=== PATIENT | male | born 1965 | race African-American/Black ===

== ENCOUNTER → 2019-09-29 | Day surgery (SDC) | payer OTHER ==
[2019-09-26 09:06] LABS: BASOPHILS % 0.3 % (0.0-1.0); EOSINOPHILS # (AUTO) 0.3 (0.0-0.4); EOSINOPHILS % 2.4 % (0.0-6.0); HEMATOCRIT 39.6 % (38.2-49.6); HEMOGLOBIN 12.9 g/dL (14.0-18.0); LYMPHOCYTES % 41.1 % (18.0-39.1); MEAN CORPUSCULAR HEMOGLOBIN 29.1 pg (28-32); MEAN CORPUSCULAR HGB CONC 32.6 g/dL (31-35); MEAN CORPUSCULAR VOLUME 89.2 fL (81-99); MONOCYTES # (AUTO) 0.7 (0.2-0.8); NEUTROPHILS % 49.8 % (38.7-80.0); PLATELET COUNT 323 x10e3/uL (140-360); RED BLOOD COUNT 4.44 x10e6/uL (4.3-5.7); RED CELL DISTRIBUTION WIDTH 13.8 % (11.7-14.4)
--- NOTE | 2019-09-26 09:17 | Diagnostic Imaging Report ---
EXAMINATION: CHEST 2 VIEWS INDICATION: ^[id number] ^[id number] ^PRE OP COMPARISON: None FINDINGS: PA and lateral views TUBES and LINES: None. LUNGS: Lungs are well inflated. Lungs are clear. There is no evidence of pneumonia or pulmonary edema. PLEURA: No pleural effusion or pneumothorax. HEART AND MEDIASTINUM: The cardiomediastinal silhouette is unremarkable. BONES AND SOFT TISSUES: No acute osseous lesion. Soft tissues are unremarkable. UPPER ABDOMEN: No free air under the diaphragm. IMPRESSION: No acute thoracic radiographic abnormality. Signed by: Lei Gallardo MD on 09/26/2019 9:14 AM
[2019-09-26 09:29] LABS: ANION GAP 11.7 mmol/L (8-16); BLOOD UREA NITROGEN 14 mg/dL (7-26); BUN/CREATININE RATIO 18 (6-25); CALCIUM 8.9 mg/dL (8.4-10.2); CARBON DIOXIDE 27 mmol/L (22-29); CHLORIDE 104 mmol/L (98-107); EST GLOMERULAR FILTRATION RATE > 60 ML/MIN (60-); GLUCOSE 93 mg/dL (74-118); POTASSIUM 3.7 mmol/L (3.5-5.1); SODIUM 139 mmol/L (136-145)
[~2019-09-29] MED LIST: ACETAMINOPHEN 1000 MG/100 ML 100 ML IV ONE; AMLODIPINE BESY10 MG PO; BENICAR20 MG PO; BUPIVACAINE HCL 0.5% INJ 30 ML VIAL INJ ONE; CEFTRIAXONE SOD 1 GM/NS 50 ML 50 ML IV ONE; DEXAMETHASONE SOD PHOS INJ 4 MG/ML VIAL ONE; FENTANYL CITRATE/PF 100MCG/2 ML INJ ONE; FINASTERIDE5 MG PO; FLOMAX0.4 MG PO; LIDOCAINE HCL 2% LOCAL INJ 5 ML SDV VIAL INJ ONE; METOCLOPRAMIDE HCL 10 MG/2ML VIAL ONE; METOPROLOL SUCC50 MG PO; MIDAZOLAM HCL 2 MG/2 ML VIAL ONE; ONDANSETRON HCL INJ 2MG/ML 2ML 2 MG/ML VIAL ONE; PROPOFOL IV EMULSION 10 MG/ML 20 ML VIAL ONE; SEVOFLURANE INHAL SOLN 250 ML PEN BTL ONE
[2019-09-29 09:05] VITALS: BP 148/99
--- NOTE | 2019-10-06 08:56 | Operative Report ---
DATE OF PROCEDURE: 09/29/2019 SURGEON: Deuce Barbosa MD PREOPERATIVE DIAGNOSIS: Enlarging right hydrocele. POSTOPERATIVE DIAGNOSIS: Enlarging right hydrocele. OPERATIVE PROCEDURE PERFORMED: Hydrocelectomy. ANESTHESIA: General anesthesia. ESTIMATED BLOOD LOSS: Minimal. INDICATIONS: Mr. Ethan Garcia is a 53-year-old black male with a history of enlarging right hydrocele. He now presents for definitive surgical management of this problem. PROCEDURE IN DETAIL: The patient brought into the operative room, placed in supine position. After administration of general anesthesia, was prepped and draped in usual sterile fashion. A horizontal incision was made over the right hemiscrotum and dissection was carried out through the layers of the scrotum. The tunica vaginalis was entered sharply and approximately 1200 mL of straw-colored fluid was obtained. The appendix testis was removed using electrocautery device. The cut edges of the tunica vaginalis were then fulgurated using the electrocautery device and oversewn with a running chromic suture. This was put in the edges from sealing back together again. A quarter-inch Gray drain was left in the most dependent portion of the tunica vaginalis. This was allowed to exit the inferior aspect of the scrotum. The testicle was then returned to his normal anatomical position and the dartos was reapproximated and closed using a running chromic suture. The skin was reapproximated and closed also using a running chromic suture. The wound was then cleaned and dried and covered with a Telfa and fluffed gauze. He was placed in a scrotal support. Anesthesia was reversed and the patient was transferred to a bed and taken to the postanesthesia care unit in good condition. Of note, the needle and instrument count were correct at the conclusion of the case. Deuce Barbosa MD HLW/MODL /[id number]
== END | disposition home or self-care (01) ==
LOC: OR 05:15
PROVIDERS: ATTEND Urology
DX: N43.3 Hydrocele, unspecified (principal); N32.0 Bladder-neck obstruction; N40.0 Benign prostatic hyperplasia without lower urinary tract symptoms; K21.9 Gastro-esophageal reflux disease without esophagitis; I10 Essential (primary) hypertension; Z01.810 Encounter for preprocedural cardiovascular examination; Z01.812 Encounter for preprocedural laboratory examination; Z01.818 Encounter for other preprocedural examination; Z11.59 Encounter for screening for other viral diseases; Z68.34 Body mass index [BMI] 34.0-34.9, adult
CPT/HCPCS: 36415; 55040; 71046; 80048; 85025; 87635; 93005; C1758; J0131; J0696; J1100; J2001; J2250; J2405; J2704; J2765; J3010